=== PATIENT | female | born 1970 | race Caucasian/White ===

== ENCOUNTER 2017-09-21 13:37 | Emergency (ER) | payer OTHER ==
[~2017-09-21] VITALS: Ht 165.1 cm; Wt 56.4 kg
[2017-09-21] MEDS ORDERED: INSREG SQ (13:45)
[2017-09-21] MEDS ORDERED: PROZ10 PO (13:45)
[2017-09-21] MEDS ORDERED: IBUP-2070 PO (13:45)
[2017-09-21] MEDS ORDERED: HYDR-4061 PO (13:45)
[2017-09-21] MEDS ORDERED: GABA-531 PO (13:45)
[2017-09-21] MEDS ORDERED: SODIUM CHLORIDE 0.9% 1,000 ML IV ONE (14:30)
[2017-09-21 14:58] LABS: GLUCOSE,POINT OF CARE 229 MG/DL (70-110)
[2017-09-21 15:58] LABS: GLUCOSE,POINT OF CARE 250 MG/DL (70-110)
[2017-09-21] MEDS ORDERED: HYDROCODONE/ACETAMINOPHEN 5-325 MG TABLET PO ONE (16:45)
[2017-09-21 17:09] LABS: GLUCOSE,POINT OF CARE 299 MG/DL (70-110)
[2017-09-21 18:08] LABS: GLUCOSE,POINT OF CARE 399 MG/DL (70-110)
[2017-09-21 19:30] VITALS: BP 106/74
== END 2017-09-21 19:40 | disposition left against medical advice (07) ==
LOC: EMS 13:39
DX: E11.649 Type 2 diabetes mellitus with hypoglycemia without coma (principal); F32.9 Major depressive disorder, single episode, unspecified; E11.9 Type 2 diabetes mellitus without complications; F17.210 Nicotine dependence, cigarettes, uncomplicated; Z79.4 Long term (current) use of insulin; Z79.899 Other long term (current) drug therapy
CPT/HCPCS: 82948; 99285; J7030

== ENCOUNTER 2019-06-01 11:22 | Day surgery (SDC) | payer MEDICAID ==
[~2019-06-01] VITALS: Ht 167.6 cm; Wt 81.8 kg
[~2019-06-01 11:22] MED LIST: GABA-531 PO; HYDR-4061 PO; IBUP-2070 PO; INSREG SQ; PROZ10 PO; SODIUM CHLORIDE 0.9% 1,000 ML ONE
[2019-06-01] MEDS ORDERED: LIDOCAINE 1% 10 ML VIAL IM ONE (11:23)
[2019-06-01] MEDS ORDERED: PROPOFOL 1% 20 ML VIAL IVP ONE (11:23)
[2019-06-01] MEDS ORDERED: SODIUM CHLORIDE 0.9% 1,000 ML IV ONE ×2 (12:00→13:00)
== END 2019-06-01 15:00 | disposition home or self-care (01) ==
LOC: SURGERY 11:22
PROVIDERS: ATTEND Student in an Organized Health Care Education/Training Program
DX: R10.11 Right upper quadrant pain (principal); R13.10 Dysphagia, unspecified; K22.8 Other specified diseases of esophagus; K44.9 Diaphragmatic hernia without obstruction or gangrene; K21.0 Gastro-esophageal reflux disease with esophagitis; K29.50 Unspecified chronic gastritis without bleeding; K22.70 Barrett's esophagus without dysplasia; E10.9 Type 1 diabetes mellitus without complications; G40.909 Epilepsy, unspecified, not intractable, without status epilepticus; F32.9 Major depressive disorder, single episode, unspecified; G89.29 Other chronic pain; F17.290 Nicotine dependence, other tobacco product, uncomplicated; Z79.899 Other long term (current) drug therapy
CPT/HCPCS: 43239; 88305; 88312; 88313; C1769; J2704; J3490; J7030